=== PATIENT | male | born 1970 | race Caucasian/White ===

== ENCOUNTER 2017-06-26 16:46 | Emergency (ER) | END 2017-06-26 18:45 | disposition left against medical advice (07) ==

== ENCOUNTER 2017-08-28 15:14 | Emergency (ER) | END 2017-08-28 15:48 | disposition home or self-care (01) ==

== ENCOUNTER 2017-11-08 18:48 | Emergency (ER) | END 2017-11-08 19:37 | disposition left against medical advice (07) ==

== ENCOUNTER 2018-07-31 20:07 | Emergency (ER) | payer SELFPAY ==
[~2018-07-31] VITALS: Ht 182.9 cm; Wt 83.8 kg
[~2018-07-31 20:07] MED LIST: ASPI-817 PO
[2018-07-31 20:11] VITALS: Ht 182.9 cm; Wt 83.8 kg
[2018-07-31] MEDS ORDERED: SOD CHLORIDE 0.9% 1,000 ML IV STA (20:23)
[2018-07-31] MEDS ORDERED: DILTIAZEM 25 MG INJ IV ONE ×2 (20:30→21:00)
[2018-07-31] MEDS ORDERED: METO-448 PO (20:54)
--- NOTE | 2018-07-31 21:27 | ERD ---
ER Documentation Chief Complaint Chief Complaint palpitation x 2 days; denies drugs and alcohol HPI Patient is a 47-year-old male with SVT who presents with palpitations. The patient has had a history of A. fib in the past as well. He said that he started with palpitations 1.5 days ago. Upon review of old medical records this is the patient's fourth visit to the ER since June 2017. Review of the emergency department information exchange system shows visits to 5 different emergency departments for a total of 11 visits over the past 1 year. He does not take any rate controlling medicines at this time. He does not currently have a primary doctor. ROS All systems reviewed and are negative except as per history of present illness. Medications Home Meds Active Scripts Metoprolol Tartrate* (Lopressor*) 25 Mg Tab, 25 MG PO BID, #60 TAB Prov:JINA ZAMUDIO MD 07/31/18 Reported Medications Aspirin* (Aspirin* EC) 81 Mg Tablet.dr, 81 MG PO DAILY, TAB NEEDED 06/26/17 Allergies Allergies: Coded Allergies: No Known Allergy (Unverified , 06/26/17) PMhx/Soc History of Surgery: Yes (partial THYROIDECTOMY, L wrist surgery. ) Anesthesia Reaction: No Hx Neurological Disorder: No Hx Respiratory Disorders: No Hx Cardiac Disorders: Yes (SVT) Hx Psychiatric Problems: No Hx Miscellaneous Medical Probl: Yes (THYROID) Hx Alcohol Use: No Hx Substance Use: Yes (meth) Hx Tobacco Use: Yes Smoking Status: Smoker,current status unk FmHx Family History: diabetes Physical Exam Vitals Vital Signs Date Temp Pulse Resp B/P (MAP) Pulse Ox O2 O2 Flow FiO2 Time Delivery Rate 07/31/18 55 16 126/81 100 Room Air 21:48 (96) 07/31/18 114 16 102/68 100 20:50 (79) 07/31/18 126 16 102/83 100 Room Air 20:42 (89) 07/31/18 97.1 142 18 100/72 99 20:11 (81) Physical Exam Const: No acute distress Head: Atraumatic Eyes: Normal Conjunctiva ENT: Normal External Ears, Nose and Mouth. Neck: Full range of motion. No meningismus. Resp: Clear to auscultation bilaterally Cardio: Tachycardic rate with a regular rhythm Abd: Soft, non tender, non distended. Normal bowel sounds Skin: No petechiae or rashes Back: No midline or flank tenderness Ext: No cyanosis, or edema Neur: Awake and alert Psych: Normal Mood and Affect Results 24 hrs Current Medications Medications Dose Sig/Kamran Start Time Status Last (Trade) Ordered Route PRN Stop Time Admin Dose Reason Admin Sodium 1,000 ml @ Q1H STAT 07/31/18 DC 07/31/18 Chloride 1,000 mls/hr IV 20:23 20:30 07/31/18 21:22 Diltiazem 10 mg ONCE ONCE 07/31/18 DC 07/31/18 HCl IV 20:30 20:31 (Cardizem Iv) 07/31/18 20:31 Diltiazem 10 mg ONCE ONCE 07/31/18 DC 07/31/18 HCl IV 21:00 20:55 (Cardizem Iv) 07/31/18 21:01 Procedures/MDM EKG #1 read by me: Rate/Rhythm: Rapid atrial fibrillation at a rate of 142 Intervals: Normal Impression: Rapid A. fib without ischemia EKG #2 read by me: Rate/Rhythm: Sinus bradycardia rate of 54 Intervals: Normal Impression: Sinus bradycardia with biphasic T wave in lead V2 Chest x-ray read by radiology. She is refusing all laboratory studies at this time because he says "I do not want to find out if my heart is bad". Smoking Cessation Therapy: Pt. was lectured for greater than 3 minutes on the health risks of continued smoking and the benefits of cessation. Patient is a 47-year-old male who presents with rapid atrial fibrillation. He was given both IV and p.o. ties and and 1 L of normal saline for fluid resuscitation. He has converted from rapid A. fib to sinus bradycardia. I wanted to do laboratory studies and admit him to the hospital for further evaluation but he is adamantly refusing. He does not want laboratories done and he does not want to be admitted. He will need to follow-up closely with a local clinics within 24 to 48 hours as he does not currently have a primary doctor. He can return sooner for any worsening symptoms. Critical Care: Time: 35 minutes excluding all billable procedures. Treatments/Evaluations: Close monitoring and treatment of unstable vital signs, cardiorespiratory, and neurologic status, while maintaining tight balance of fluid, respiratory, and cardiac interventions. Departure Diagnosis: Primary Impression: Atrial fibrillation with rapid ventricular response Condition: Fair Patient Instructions: Atrial Fibrillation, Palpitations Referrals: [facility] YOU HAVE RECEIVED A MEDICAL SCREENING EXAM AND THE RESULTS INDICATE THAT YOU DO NOT HAVE A CONDITION THAT REQUIRES URGENT TREATMENT IN THE EMERGENCY DEPARTMENT. FURTHER EVALUATION AND TREATMENT OF YOUR CONDITION CAN WAIT UNTIL YOU ARE SEEN I N YOUR DOCTORS OFFICE WITHIN THE NEXT 1-2 DAYS. IT IS YOUR RESPONSIBILITY TO MAKE AN APPOINTMENT FOR FOLOW-UP CARE. IF YOU HAVE A PRIMARY DOCTOR --you should call your primary doctor and schedule an appointment IF YOU DO NOT HAVE A PRIMARY DOCTOR YOU CAN CALL OUR PHYSICIAN REFERRAL HOTLINE AT IF YOU CAN NOT AFFORD TO SEE A PHYSICIAN YOU CAN CHOSE FROM THE FOLLOWING [facility] [address] [facility]. [facility] [address] [facility]. [facility] [address] [facility] [facility] [address] [facility]. [facility] [address] [facility]. [facility] [address] Additional Instructions: Call your primary care doctor TOMORROW for an appointment during the next 1-2 days.See the doctor sooner or return here if your condition worsens before your appointment time. JINA ZAMUDIO MD July 31, 2018 21:27
[2018-07-31 21:48] VITALS: BP 126/81; PULSE 55; RESP 16
== END 2018-07-31 21:57 | disposition home or self-care (01) ==
LOC: E/R 20:07
DX: I49.01 Ventricular fibrillation (principal); F17.210 Nicotine dependence, cigarettes, uncomplicated; Z79.82 Long term (current) use of aspirin
CPT/HCPCS: 71045; 96374; 99284; J7030